=== PATIENT | female | born 2000 | race Caucasian/White ===

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

== ENCOUNTER 2021-06-30 20:39 | Emergency (ER) | payer MEDICAID, OTHER ==
[~2021-06-30] VITALS: Ht 154.9 cm; Wt 61.2 kg
[2021-06-30 20:40] VITALS: BP 127/79
== END 2021-06-30 21:13 | disposition left against medical advice (07) ==
LOC: ER 20:39
DX: M25.50 Pain in unspecified joint (principal); Z53.21 Procedure and treatment not carried out due to patient leaving prior to being seen by health care provider